=== PATIENT | female | born 1995 ===

== ENCOUNTER 2020-11-30 13:16 | Inpatient (IN) | payer OTHER, MEDICAID ==
[~2020-11-30] VITALS: Ht 144.8 cm; Wt 60.0 kg
[2020-11-30] VITALS (23 sets, daily range): BP systolic 94–136; BP diastolic 49–86; PULSE 75–102; TEMP 98.1–100
[~2020-11-30 13:16] MED LIST: IBU800 M1 PO; PRENATAL PO
--- NOTE | 2020-11-30 13:25 | NUR ---
Admits to L&D from ED per wheelchair with complaint of painful contractions. Accompanied by spouse.
[2020-11-30] MEDS ORDERED: PRENATAL TABLET PO (13:55)
[2020-11-30 13:59] LABS: BASO # 0.1 (0.0-0.2); BASO % 0.4 % (0.0-2.0); EOS % 0.2 % (0-4.0); GRAN # 11.2 (1.4-6.5); GRAN % 83.4 % (42.2-75.2); HEMATOCRIT 35.2 % (37.0-47.0); LYMPH # 1.3 (1.2-3.4); LYMPH % 9.6 % (20.0-51.0); MEAN CELL VOLUME 90 fl (80.0-100.0); MEAN CORPUSCULAR HEMOGLOBIN 31 pg (27.0-31.0); MEAN CORPUSCULAR HGB CONC 34 g/dl (33.0-37.0); MEAN PLATELET VOLUME 11.4 fl (7.4-10.4); MONO # 0.7 (0.1-0.6); MONO % 5.4 % (1.7-9.3); PLATELET COUNT 154 K/mm3 (130-400); RED BLOOD COUNT 3.93 M/mm3 (4.10-5.30); REDCELL DISTRIBUTION WIDTH-CV 14.1 % (11.5-14.5)
--- NOTE | 2020-11-30 15:20 | NUR ---
Straight cathed for 350 mL urine return. Repeat SVE AL/0.
--- NOTE | 2020-11-30 17:28 | NUR ---
1600 PATIENT HAVING INCREASE PAIN AND FHT DECREASED TO 80'S. SVE BY DR SLATER. COMPLETEE/100/+3 WILL START PUSHING WITH CONTRACTIONS. 1605 PUSHES WITH EACH CONTRACTIONS WELL. 1633 BABY BOY VIA . NUCHAL CORD TIMES ONE. MODERATEE AMOUNT OF BLEEDING NOTED. FUNDUS FIRM WITH SMALL CLOT. 1635 PLACENTA DELIVERED BY AND PITOCIN STARTED AT 333/PER PROTOCOL. DENIES NEEDS. 3RD DEGREE REPAIR BY DR SLATER AT THIS TIME. PATIENT TOLERATES WELL.
--- NOTE | 2020-11-30 19:35 | NUR ---
Fundal message completed. fundus firm, midline and bleeding WNL no clots noted. Pt assited to edge of bed. Epidural catheter removed without difficulty. Pt ambulatory to bathroom, one person assist. Pt voided. Pericare explained and completed. Ice pack applied for swollen labia. Pt wheele to PP room and oriented to room.
[2020-12-01 03:35] VITALS: BP 99/42; PULSE 65; TEMP 98.3
[2020-12-01 08:52] VITALS: BP 102/44; PULSE 71; TEMP 97.8
[2020-12-01] MEDS ORDERED: PERCOCET 325 MG1 TA2 PO (13:05)
[2020-12-01] MEDS ORDERED: MOTRIN 800800 MG/TAB PO (13:05)
[2020-12-01 16:29] VITALS: BP 107/57; PULSE 82; TEMP 98.2
[2020-12-01 21:00] VITALS: BP 100/64; PULSE 75; TEMP 98.3
[2020-12-02 08:00] VITALS: BP 108/63; PULSE 74; TEMP 99.3
--- NOTE | 2020-12-02 10:11 | NUR ---
Initial visit; Patient thanked [employer] for offering congratulations on the of her son. [employer] thanked patient for choosing [facility].
--- NOTE | 2020-12-02 13:45 | NUR ---
DISCHARGE TEACHING COMPLETED. PT EDUCATED ON F/U APPOINTMENT AND MEDICATIONS. QUESTIONS INVITED AND ANSWERED.
== END 2020-12-02 14:00 | disposition home or self-care (01) | DRG 768 ==
LOC: LDRO 13:16 → LDR 13:45 → OB 21:21
PROVIDERS: Student in an Organized Health Care Education/Training Program; ADMIT Obstetrics & Gynecology
PROC: 10E0XZZ Delivery of Products of Conception, External Approach (ICD-10-PCS; principal; 2020-11-30)
PROC: 0DQR0ZZ Repair Anal Sphincter, Open Approach (ICD-10-PCS; 2020-11-30)
DX: O99.12 Other diseases of the blood and blood-forming organs and certain disorders involving the immune mechanism complicating childbirth (principal); Z37.0 Single live birth; O70.20 Third degree perineal laceration during delivery, unspecified; D69.6 Thrombocytopenia, unspecified; O69.1XX0 Labor and delivery complicated by cord around neck, with compression, not applicable or unspecified; Z3A.39 39 weeks gestation of pregnancy
CPT/HCPCS: J2400; J2590; J7120